=== PATIENT | male | born 1970 | race Caucasian/White ===

== ENCOUNTER 2019-06-09 06:31 | Emergency (ER) | payer OTHER ==
[~2019-06-09] VITALS: Ht 180.3 cm; Wt 81.0 kg
[2019-06-09] MEDS ORDERED: ACETAMINOPHEN 325 MG TABLET PO ONE (07:00)
[2019-06-09] MEDS ORDERED: ACETAMINOPHEN 325 MG TABLET ONE (07:01)
--- NOTE | 2019-06-09 07:09 | NUR ---
Pt ambulated to room smoothly with an even gait. Changed into gown and attached to pulse ox and bp. Dr Conner at bedside performed assessment and discussed plan of care. NAD, denies additional needs at this time, call light within reach, even and unlabored respirations. WCTM
--- NOTE | 2019-06-09 07:10 | NUR ---
pt ambulated to xray.
[2019-06-09] MEDS ORDERED: ALBUTEROL SULFATE 2.5 MG/3 ML ONE (07:30)
[2019-06-09] MEDS ORDERED: ALBUTEROL SULFATE 2.5 MG/3 ML NPPB ONE (07:30)
[2019-06-09 07:56] VITALS: BP 111/74
== END 2019-06-09 08:01 | disposition home or self-care (01) ==
LOC: ED 07:17
DX: J15.9 Unspecified bacterial pneumonia (principal)
CPT/HCPCS: 71046; 94640; 99283; J7613